=== PATIENT | female | born 1965 | race Caucasian/White ===

== ENCOUNTER 2021-02-14 09:04 | Emergency (ER) | payer OTHER, BC, SELFPAY ==
--- NOTE | ~2021-02-14 | XR_ITS ---
EXAMINATION: XR chest 1V portable DATE: 02/14/2021 09:29 INDICATION: Cough and shortness of breath TECHNIQUE: frontal view of the chest was obtained. COMPARISON: Chest radiograph dated 10/07/[address] dated 02/16/2014 FINDINGS: Persistent streaky linear discoid atelectasis/scarring at the left lung base. No new airspace opaciti es, pulmonary edema, pleural effusion or pneumothorax. The cardiomediastinal silhouette is normal. Pl ate and screw fixation for lower cervical anterior spinal fusion. IMPRESSION: 1. Chronic mild lingular discoid atelectasis/scarring. No acute cardiopulmonary disease. Reviewed, dictated and finalized at location A.
[2021-02-14 09:12] VITALS: BP 114/64; PULSE 76; RESP 17; TEMP 36.6; O2SAT 99
--- NOTE | 2021-02-14 10:07 | ECG_ITS ---
Measurements Intervals [place] Rate: 61 P: 30 MN: 117 QRS: -18 QRSD: 122 T: -12 QT: 417 QTc: 422 Interpretive Statements SINUS RHYTHM WITH SHORT MN INTERVAL INCOMPLETE RIGHT BUNDLE BRANCH BLOCK BORDERLINE T WAVE ABNORMALITY- ANT/INF LEADS BASELINE ARTIFACT- V4-V5 BORDERLINE ECG Electronically Signed On 02-14-2021 11:07:32 CDT by Rakesh Leija D.O.
--- NOTE | 2021-02-14 10:08 | ED.URI ---
HPI - URI/Sore Throat General Chief Complaint: Upper Respiratory Infection Stated Complaint: cough/congestion Time Seen by Provider: 02/14/21 09:15 Source: patient Mode of arrival: ambulatory Limitations: no limitations History of Present Illness HPI Narrative: This is a 55-year-old female that presents to the emergency department for cold symptoms x3 days. Reports cough, congestion, and rhinorrhea. Reports she has been coughing so much it has started to make her chest hurt. She also has pain with breathing. She is feeling mildly short of breath. She has not had her Covid vaccination. Denies fever. Related Data Allergies Allergy/AdvReac Type Severity Reaction Status Date / Time codeine Allergy Mild Unknown Verified 02/14/21 10:33 meperidine Allergy Mild Unknown Verified 02/14/21 10:33 Penicillins Allergy Mild Unknown Verified 02/14/21 10:33 levofloxacin Allergy Unknown Unknown Verified 02/14/21 10:33 Review of Systems Review of Systems: Narrative: CONSTITUTIONAL: Denies fever ENT: Reports rhinorrhea, congestion, sore throat CARDIOVASCULAR: Reports pleuritic chest pain. Denies edema. RESPIRATORY: Reports cough and dyspnea. All systems reviewed & are unremarkable except as noted in HPI and below PMFSH Past Medical History Medical History (Updated 02/14/21 @ 14:56 by Zahra Aguilar PA-C) Fibromyalgia History of asthma History of hyperlipidemia Family History Family History (Updated 12/21/17 @ 14:12 by DOCTOR UNKNOWN) Sibling Family history of multiple sclerosis Family history of malignant neoplasm Patient's sister is in good health Family history of sleep apnea Father Family history of malignant neoplasm Family history of pancreatic cancer, Onset Age: 62 Mother Diabetes mellitus Hypertension Family history of sleep apnea Social History Social History Smoking status: Never smoker Alcohol intake: never Exam Narrative: Exam Narrative: GENERAL: Well-appearing, well-nourished, and in no acute distress. HEAD: Normocephalic, atraumatic. EYES: EOMI. ENT: Nares clear, no rhinorrhea or epistaxis. Mucous membranes moist. Oropharynx without tonsillar hypertrophy exudate or other lesions. Bilateral TMs pearly gomez non-bulging NECK: Supple. No adenopathy or masses. CHEST: Clear to auscultation. No respiratory distress. No wheezes rales or rhonchi HEART: Regular rate and rhythm. No murmur heard. Normal peripheral pulses. EXTREMITIES: Normal range of motion. No edema. SKIN: Warm, dry, no rash. NEURO: No focal deficits. Alert and oriented x3. PSYCH: Normal mood and affect Course Vital Signs Vital signs: Vital Signs Temperature 97.8 F 02/14/21 09:12 Pulse Rate 76 02/14/21 09:12 Respiratory Rate 17 02/14/21 09:12 Blood Pressure 114/64 02/14/21 09:12 Pulse Oximetry 99 02/14/21 09:12 Temperature 97.8 F 02/14/21 09:12 Pulse Rate 69 02/14/21 14:28 Respiratory Rate 12 02/14/21 14:28 Blood Pressure 120/86 02/14/21 14:28 Pulse Oximetry 96 02/14/21 14:28 MDM - URI/Sore Throat MDM Narrative Medical decision making narrative: Patient presents to the emergency department for cold symptoms x3 days. She is afebrile and nontoxic-appearing. Vitals are stable. Oxygen saturation is normal on room air. CBC and metabolic panel without concerning findings. Patient was also reporting pleuritic chest pain worse with cough. EKG with nonspecific ST changes. Baseline and 3-hour troponin are negative. D-dimer is not elevated. She reports improvement in her pain with Toradol. Chest x-ray is without acute cardiopulmonary abnormality. SARS-CoV-2 was sent. Patient was instructed on care of viral infection. She is to follow-up with her primary care doctor. She was given warnings to return to the ER Lab Data Attestation: I reviewed the patient's lab results. Result diagrams: 02/14/21 10:49 02/14/21 10:49 Labs: Lab Results 02/14/21 0
[2021-02-14] MEDS: KETOROLAC 15 MG/ML VIAL (*BKC) IV PUSH (10:34)
[2021-02-14 11:00] LABS: Basophils Percent Auto 0.9 % (0.2-1.2); Eosinophils Absolute Auto 0.3 K/mm3 (0-0.3); Eosinophils Percent Auto 9.6 % (0-4.4); Hematocrit 39.5 % (37.0-47.0); Hemoglobin 12.6 g/dL (12.0-15.0); Immature Granulocyte Absolute 0.01 K/mm3 (0.00-0.031); Immature Granulocyte Percent A 0.3 % (0-0.5); Lymphocytes Absolute Auto 1.08 K/mm3 (0.9-3.2); Lymphocytes Percent Auto 31.4 % (18.3-44.2); Mean Corpuscular HGB Conc 31.9 g/dl (32-36); Mean Corpuscular Hemoglobin 30.8 pg (26-34); Mean Corpuscular Volume 96.6 fl (80-100); Mean Platelet Volume 10.4 fl (7.4-10.4); Monocytes Absolute Auto 0.6 K/mm3 (0.1-0.6); Monocytes Percent Auto 17.2 % (2.6-8.5); Neutrophils Absolute Auto 1.4 K/mm3 (1.3-6.7); Neutrophils Percent Auto 40.6 % (45.5-73.1); Platelet Count Result 183 k/mm3 (150-375); Red Blood Count 4.09 M/mm3 (4.2-5.4); Red Cell Distribution Width 12.8 % (11.5-14.5); White Blood Count 3.4 K/mm3 (4.5-10.0)
[2021-02-14 11:10] LABS: INR 0.9; Prothrombin Time 12.5 Seconds (11.1-14.7)
[2021-02-14 11:11] LABS: Anion Gap 6 mmol/L (8-16); Blood Urea Nitrogen 10 mg/dL (7-17); Calcium 10.2 mg/dL (8.4-10.2); Carbon Dioxide 26 mmol/L (22-30); Chloride 110 mmol/L (98-107); Estimated CRCL calculation 100 ml/min; Estimated Glomerular Filt Rate > 60; Glucose 101 mg/dL (65-105); Sodium 142 mmol/L (137-145)
[2021-02-14 11:22] LABS: D Dimer 0.29 ug/mL (<0.48); Troponin I < 0.012 ng/mL (0.000-0.034)
[2021-02-14 11:43] VITALS: BP 119/70; PULSE 57; RESP 12; O2SAT 96
[2021-02-14 13:30] VITALS: PULSE 63; RESP 16
[2021-02-14] MEDS: ALBUTEROL SULFATE NEB 2.5 MG/0.5 ML INH 5 MG INHALATION (13:30)
[2021-02-14] MEDS: IPRATROPIUM BR 0.02% INH SOLN 0.5 MG/2.5 ML VIAL INHALATION (13:30)
[2021-02-14 13:32] VITALS: BP 126/82; PULSE 62; RESP 12; O2SAT 100
[2021-02-14 13:35] VITALS: PULSE 68; RESP 16
[2021-02-14 14:28] VITALS: BP 120/86; PULSE 69; RESP 12; O2SAT 96
[2021-02-14 14:36] LABS: Troponin I < 0.012 ng/mL (0.000-0.034)
[2021-02-14 18:16] LABS: SARS-CoV-2 RNA PCR Negative
== END 2021-02-14 15:09 | disposition home or self-care (01) ==
PROVIDERS: Physician Assistant; Emergency Provider Emergency Medicine; PCP Internal Medicine
DX: J45.901 Unspecified asthma with (acute) exacerbation (principal); Z20.828 Contact with and (suspected) exposure to other viral communicable diseases; R06.02 Shortness of breath
CPT/HCPCS: 36415; 71045; 80048; 84484; 85025; 85380; 85610; 85730; 93005; 94640; 96374; 99284; C9803; J1885; U0003; U0005

== ENCOUNTER 2023-01-09 08:57 | Outpatient (CLI) | payer OTHER, BC, SELFPAY ==
[2023-01-09 09:41] LABS: Basophils Percent Auto 1.1 % (0.2-1.2); Eosinophils Absolute Auto 0.1 K/mm3 (0-0.3); Eosinophils Percent Auto 2.9 % (0-4.4); Hematocrit 43.4 % (37.0-47.0); Hemoglobin 14.3 g/dL (12.0-15.0); Immature Granulocyte Absolute 0.01 K/mm3 (0.00-0.031); Immature Granulocyte Percent A 0.3 % (0-0.5); Lymphocytes Absolute Auto 1.34 K/mm3 (0.9-3.2); Lymphocytes Percent Auto 38.4 % (18.3-44.2); Mean Corpuscular HGB Conc 32.9 g/dl (32-36); Mean Corpuscular Hemoglobin 30.5 pg (26-34); Mean Corpuscular Volume 92.5 fl (80-100); Mean Platelet Volume 10.2 fl (7.4-10.4); Monocytes Absolute Auto 0.5 K/mm3 (0.1-0.6); Monocytes Percent Auto 13.8 % (2.6-8.5); Neutrophils Absolute Auto 1.5 K/mm3 (1.3-6.7); Neutrophils Percent Auto 43.5 % (45.5-73.1); Platelet Count Result 218 k/mm3 (150-375); Red Blood Count 4.69 M/mm3 (4.2-5.4); Red Cell Distribution Width 13.2 % (11.5-14.5); White Blood Count 3.5 K/mm3 (4.5-10.0)
[2023-01-09 09:46] LABS: Add Urine Microscopic? YES; Appearance Urine Clear (Clear); Bacteria Urine 4+ /hpf; Bilirubin Urine Negative (Negative); Blood Urine Negative (Negative); Color Urine Yellow (Yellow); Glucose Urine UA Negative (Negative); Ketones Urine Negative (Negative); Leukocyte Esterase Ur Trace LEU/UL (NEGATIVE); Nitrate Urine Negative (Negative); Non Pathogenic Casts 0-2; Protein Urine Negative (Negative); RBC Urine 0-2 /hpf (0-2); Specific Grav Ur 1.009 (1.001-1.035); Squamous Epithelial Cell Urine None seen /hpf (Few); Urobilinogen Urine 0.2 mg/dL (<2.0); WBC Urine 0-5 /hpf (0-3); pH Urine 7.5 (5.0-9.0)
[2023-01-09 09:55] LABS: Alanine Aminotransferase 19 U/L (6-35); Albumin Level 4.3 g/dL (3.5-5.1); Alkaline Phosphatase 41 U/L (38-126); Anion Gap 4 mmol/L (8-16); Aspartate Amino Transferase 22 U/L (14-36); Bilirubin,Total 0.7 mg/dL (0.2-1.3); Blood Urea Nitrogen 12 mg/dL (7-17); Calcium 10.3 mg/dL (8.4-10.2); Carbon Dioxide 29 mmol/L (22-30); Chloride 105 mmol/L (98-107); Cholesterol 251 mg/dL (0-200); Estimated Glomerular Filt Rate > 60; Glucose 79 mg/dL (65-110); HDL Direct 43 mg/dL; Phosphorus 3.3 mg/dL (2.5-4.5); Potassium 4.2 mmol/L (3.4-5.0); Sodium 138 mmol/L (137-145); Triglycerides 223 mg/dL (<150)
[2023-01-09 10:06] LABS: LDL Cholesterol Direct 146 mg/dL; Parathyroid Intact 120.7 pg/mL (7.5-53.5)
[2023-01-09 10:16] LABS: Creatinine Urine 39.1 mg/dL; Total Protein Urine Random 13 mg/dL; Ur Ttl Prot Creatinine Ratio 0.33 mg/mg (0-0.20)
[2023-01-09 10:59] LABS: Hemoglobin A1C 5.1 % (<5.7)
[2023-01-09 11:05] LABS: Vitamin D 25 Hydroxy 30.5 ng/mL
[2023-01-13 04:42] LABS: Calcitonin <2 pg/mL (<=5)
== END 2023-01-09 08:58 | disposition home or self-care (01) ==
PROVIDERS: PCP Internal Medicine; Visit Provider Internal Medicine Nephrology
DX: I25.10 Atherosclerotic heart disease of native coronary artery without angina pectoris (principal); G47.33 Obstructive sleep apnea (adult) (pediatric); E78.01 Familial hypercholesterolemia; K21.9 Gastro-esophageal reflux disease without esophagitis; N18.32 Chronic kidney disease, stage 3b; N17.9 Acute kidney failure, unspecified; E83.52 Hypercalcemia
CPT/HCPCS: 36415; 80053; 80061; 81001; 82306; 82308; 82570; 83036; 83970; 84100; 84156; 85025

== ENCOUNTER 2023-01-11 08:47 | Outpatient (CLI) | payer OTHER, BC, SELFPAY ==
[2023-01-16 13:37] LABS: Ionized Calcium 5.5 mg/dL (4.7-5.5)
== END 2023-01-11 08:48 | disposition home or self-care (01) ==
LOC: ANHLAB 08:50
PROVIDERS: PCP Internal Medicine; Visit Provider Internal Medicine Nephrology
DX: I25.10 Atherosclerotic heart disease of native coronary artery without angina pectoris (principal); N17.9 Acute kidney failure, unspecified; N18.32 Chronic kidney disease, stage 3b; G47.33 Obstructive sleep apnea (adult) (pediatric); E78.01 Familial hypercholesterolemia; K21.9 Gastro-esophageal reflux disease without esophagitis; E83.52 Hypercalcemia
CPT/HCPCS: 36415; 82330

== ENCOUNTER 2023-02-08 13:57 | Outpatient (CLI) | payer OTHER, BC, SELFPAY ==
[2023-02-08 14:28] LABS: Basophils Percent Auto 0.7 % (0.2-1.2); Eosinophils Absolute Auto 0.1 K/mm3 (0-0.3); Eosinophils Percent Auto 2.1 % (0-4.4); Hematocrit 42.1 % (37.0-47.0); Hemoglobin 13.8 g/dL (12.0-15.0); Immature Granulocyte Absolute 0.01 K/mm3 (0.00-0.031); Immature Granulocyte Percent A 0.2 % (0-0.5); Lymphocytes Absolute Auto 1.25 K/mm3 (0.9-3.2); Lymphocytes Percent Auto 29.8 % (18.3-44.2); Mean Corpuscular HGB Conc 32.8 g/dl (32-36); Mean Corpuscular Hemoglobin 30.8 pg (26-34); Mean Platelet Volume 9.8 fl (7.4-10.4); Monocytes Absolute Auto 0.4 K/mm3 (0.1-0.6); Monocytes Percent Auto 8.6 % (2.6-8.5); Neutrophils Absolute Auto 2.5 K/mm3 (1.3-6.7); Neutrophils Percent Auto 58.6 % (45.5-73.1); Platelet Count Result 240 k/mm3 (150-375); Red Blood Count 4.48 M/mm3 (4.2-5.4); Red Cell Distribution Width 13.2 % (11.5-14.5); White Blood Count 4.2 K/mm3 (4.5-10.0)
[2023-02-08 14:32] LABS: Appearance Urine Clear (Clear); Bacteria Urine 4+ /hpf; Bilirubin Urine Negative (Negative); Blood Urine Negative (Negative); Color Urine Yellow (Yellow); Glucose Urine UA Negative (Negative); Ketones Urine Trace mg/dL (Negative); Leukocyte Esterase Ur 1+ LEU/UL (Negative); Nitrate Urine Positive (Negative); Non Pathogenic Casts 0-2; Protein Urine Negative (Negative); RBC Urine 0-2 /hpf (0-2); Specific Grav Ur 1.019 (1.001-1.035); Squamous Epithelial Cell Urine None seen /hpf (Few); pH Urine 5.5 (5.0-9.0)
[2023-02-08 14:37] LABS: Creatinine Urine 118.7 mg/dL
[2023-02-08 14:38] LABS: Add Urine Microscopic? YES
[2023-02-08 14:44] LABS: Alanine Aminotransferase 23 U/L (6-35); Albumin Level 4.2 g/dL (3.5-5.1); Alkaline Phosphatase 49 U/L (38-126); Anion Gap 6 mmol/L (8-16); Aspartate Amino Transferase 26 U/L (14-36); Bilirubin,Total 0.4 mg/dL (0.2-1.3); Blood Urea Nitrogen 13 mg/dL (7-17); Calcium 10.2 mg/dL (8.4-10.2); Carbon Dioxide 26 mmol/L (22-30); Chloride 108 mmol/L (98-107); Cholesterol 209 mg/dL (0-200); Estimated Glomerular Filt Rate > 60; Glucose 104 mg/dL (65-110); HDL Direct 47 mg/dL; Phosphorus 3.1 mg/dL (2.5-4.5); Potassium 3.8 mmol/L (3.4-5.0); Sodium 140 mmol/L (137-145); Triglycerides 251 mg/dL (<150)
[2023-02-08 14:48] LABS: Parathyroid Intact 125.7 pg/mL (7.5-53.5)
[2023-02-08 14:55] LABS: LDL Cholesterol Direct 117 mg/dL
[2023-02-08 15:00] LABS: Total Protein Urine Random < 5 mg/dL; Ur Ttl Prot Creatinine Ratio < 0.04 mg/mg (0-0.20)
[2023-02-08 16:31] LABS: Vitamin D 25 Hydroxy 27.9 ng/mL
[2023-02-11 19:52] LABS: Ionized Calcium 5.6 mg/dL (4.7-5.5)
== END 2023-02-08 13:58 | disposition home or self-care (01) ==
LOC: ANHLAB 14:01
PROVIDERS: PCP Internal Medicine; Visit Provider Internal Medicine Nephrology
DX: N18.2 Chronic kidney disease, stage 2 (mild) (principal); I25.10 Atherosclerotic heart disease of native coronary artery without angina pectoris; E83.52 Hypercalcemia; G47.33 Obstructive sleep apnea (adult) (pediatric); K21.9 Gastro-esophageal reflux disease without esophagitis; E78.00 Pure hypercholesterolemia, unspecified
CPT/HCPCS: 36415; 80053; 80061; 81001; 82306; 82330; 82570; 83036; 83970; 84100; 84156; 85025; 87077; 87086; 87186

== ENCOUNTER 2023-03-08 08:53 | Outpatient (CLI) | payer OTHER, BC, SELFPAY ==
--- NOTE | ~2023-03-08 | NM_ITS ---
EXAMINATION: NM parathyroid w imaging DATE: 03/08/2023 12:24 INDICATION: Hyperparathyroidism. TECHNIQUE: 19.8 mCi Tc99m sestamibi was administered intravenously. Anterior images of the neck were obtained immediately and at 2 hours. SPECT images of the neck were obtained. COMPARISON: None. FINDINGS: There is no focus of persistent activity in the area of the thyroid or mediastinum to sugge st parathyroid adenoma. IMPRESSION: 1. Normal scintigraphy. No evidence of a parathyroid adenoma. Reviewed, dictated and finalized at location A.
== END 2023-03-08 08:54 | disposition home or self-care (01) ==
LOC: ANHIMG 08:56
PROVIDERS: PCP Internal Medicine; Visit Provider Internal Medicine Nephrology
DX: E21.3 Hyperparathyroidism, unspecified (principal); N18.2 Chronic kidney disease, stage 2 (mild)
CPT/HCPCS: 78070; A9500

== ENCOUNTER 2023-11-05 13:58 | Outpatient (CLI) | payer OTHER, BC, SELFPAY ==
--- NOTE | ~2023-11-05 | XR_ITS ---
XR hip LT 2V w AP pelvis DATE: 11/05/2023 14:16 INDICATION: Left hip pain TECHNIQUE: AP pelvis. AP and lateral views of left hip. COMPARISON: None FINDINGS: Bilateral L5-S1 hardware. Prominent degenerative disc disease at L4-5. Mild osteitis pubis. Normal alignment at the pubic symphysis and sacroiliac joints. No pelvic fracture or bone destruction. Mild bilateral hip osteoarthritis. No fracture, dislocation, avascular necrosis or bone destruction of the left hip is detected. IMPRESSION: Mild osteoarthritis. This likely postoperative change at L5-S1 Severe degenerative disc disease at L4-5 Mild bilateral hip osteoarthritis. Reviewed, dictated and finalized at location B.
== END 2023-11-05 13:59 ==
PROVIDERS: PCP Internal Medicine; Visit Provider Nurse Practitioner Family
DX: M16.0 Bilateral primary osteoarthritis of hip (principal); M51.36 Other intervertebral disc degeneration, lumbar region
CPT/HCPCS: 73502

== ENCOUNTER 2025-06-09 15:34 | Outpatient (CLI) | payer OTHER, BC, SELFPAY ==
--- NOTE | ~2025-06-09 | MM_ITS ---
EXAMINATION: MM screening chaz BI w isa HISTORY: Screening. Prior history of breast reduction surgery 15 years ago. TECHNIQUE: Craniocaudal and mediolateral oblique 3-D tomosynthesis images were obtained and synthetic 2-D images were generated. CAD analysis was submitted and interpreted. COMPARISON: None provided BREAST PARENCHYMAL COMPOSITION: The breasts are almost entirely fatty. FINDINGS: There is no evidence of suspicious mass, calcification, or architectural distortion to suggest malignancy in either breast. IMPRESSION: 1. No mammographic evidence of malignancy. 2. Recommend routine screening mammography in one year. BI-RADS Category 1: Negative Reviewed, dictated and finalized at location B.
== END 2025-06-09 15:35 | disposition home or self-care (01) ==
LOC: MICIMG 15:35
PROVIDERS: PCP Internal Medicine; Visit Provider Internal Medicine
DX: Z12.31 Encounter for screening mammogram for malignant neoplasm of breast (principal)
CPT/HCPCS: 77063; 77067